=== PATIENT | female | born 1965 | race Caucasian/White ===

== ENCOUNTER 2022-01-06 11:05 | Day surgery (SDC) | payer BC ==
[2022-01-06] MEDS ORDERED: LACTATED RINGERS 1,000 ML IV SCH (11:31)
[2022-01-06 11:39] VITALS: TEMP 98
[2022-01-06] MEDS ORDERED: LACTATED RINGERS 1,000 ML IV ONE (11:41)
[2022-01-06] MEDS ORDERED: PROPOFOL 10 MG/ML 20 ML VIAL IV ONE (12:18)
--- NOTE | 2022-01-06 12:21 | P.GSHP ---
History of Present Illness H&P Date: 01/06/22 Chief Complaint: Colon cancer screening 56-year-old female here today for colonoscopy. She has not had one previously. No bowel complaints. No family history of colon cancer. Medications and Allergies Home Medications Medication Instructions Recorded Confirmed Type Atorvastatin [Lipitor] 40 mg PO DAILY 01/06/22 01/06/22 History Chlorthalidone [Hygroton] 25 mg PO DAILY 01/06/22 01/06/22 History Escitalopram [Lexapro] 20 mg PO DAILY 01/06/22 01/06/22 History Famotidine 40 mg PO DAILY 01/06/22 01/06/22 History Allergies Allergy/AdvReac Type Severity Reaction Status Date / Time No Known Allergies Allergy Verified 01/06/22 11:31 Surgical - Exam Vital Signs Temp Pulse Resp BP Pulse Ox 98 F 89 18 147/89 98 01/06/22 11:37 01/06/22 11:37 01/06/22 11:37 01/06/22 11:37 01/06/22 11:37 Physical exam: General: Well-developed, well-nourished HEENT: Normocephalic, sclerae nonicteric Abdomen: Nontender, nondistended Extremities: No edema Neuro: Alert and oriented Assessment and Plan (1) Colon cancer screening Narrative/Plan: Will proceed with colonoscopy at this time. Current Visit: Yes Status: Acute Code(s): Z12.11 - ENCOUNTER FOR SCREENING FOR MALIGNANT NEOPLASM OF COLON SNOMED Code(s): 539262731
--- NOTE | 2022-01-06 12:32 | P.PCN ---
Date of Procedure: 01/06/22 Procedure(s) Performed: PREOPERATIVE DIAGNOSIS: Screening POSTOPERATIVE DIAGNOSIS: Mild diverticulosis PROCEDURE: Colonoscopy ANESTHESIA: MAC SURGEON: Keith Floyd M.D. SPECIMENS: None ENDOSCOPIC PROCEDURE: The patient was placed on the endoscopy table in the left decubitus position. The Olympus colonoscope was inserted into the anus and passed under direct visualization to the base of the cecum. The appendiceal orifice was visualized. From that point the scope was slowly withdrawn inspecting all surfaces carefully. There were no neoplastic inflammatory or polypoid lesions throughout the cecum, ascending, transverse, descending, sigmoid and rectum. There was. Mild left-sided diverticulosis noted. Digital rectal examination was normal. The patient was taken to the recovery room in stable condition per anesthesia guidelines. RECOMMENDATIONS: Resume diet. Follow-up colonoscopy 10 years.
[2022-01-06 12:36] VITALS: RESP 16
[2022-01-06 12:53] VITALS: BP 128/61; PULSE 64
== END 2022-01-06 13:03 | disposition home or self-care (01) ==
LOC: ORWHC2ENDO 11:05
PROVIDERS: ATTEND Surgery
DX: Z12.11 Encounter for screening for malignant neoplasm of colon (principal); K57.30 Diverticulosis of large intestine without perforation or abscess without bleeding; K21.9 Gastro-esophageal reflux disease without esophagitis; I11.0 Hypertensive heart disease with heart failure; E78.5 Hyperlipidemia, unspecified; Z79.899 Other long term (current) drug therapy
CPT/HCPCS: 45378; J2704